=== PATIENT | female | born 2000 | race Caucasian/White ===

== ENCOUNTER 2022-08-22 01:53 | Emergency (ER) | payer MEDICAID ==
[~2022-08-22] VITALS: Ht 152.4 cm; Wt 82.3 kg
[2022-08-22 02:19] VITALS: BP 122/84
[2022-08-22] MEDS ORDERED: BACI3.5O24 RIGHTEYE (15:18)
== END 2022-08-22 08:09 | disposition left against medical advice (07) ==
LOC: ER 01:53
DX: Z53.21 Procedure and treatment not carried out due to patient leaving prior to being seen by health care provider (principal)
CPT/HCPCS: 99281

== ENCOUNTER 2022-08-22 14:58 | Emergency (ER) | payer MEDICAID ==
[~2022-08-22] VITALS: Ht 152.4 cm; Wt 82.0 kg
[2022-08-22 15:14] VITALS: BP 124/95
[2022-08-22] MEDS ORDERED: BACI3.5O24 RIGHTEYE (15:18)
== END 2022-08-22 16:16 | disposition home or self-care (01) ==
LOC: ER 15:05
DX: H11.31 Conjunctival hemorrhage, right eye (principal)
CPT/HCPCS: 99282